=== PATIENT | male | born 1970 | race Caucasian/White ===

== ENCOUNTER 2017-03-24 13:26 | Observation (INO) | payer OTHER ==
--- NOTE | 2017-03-24 13:45 | CPEKG ---
Heart Rate: 98 RR Interval: 612 P-R Interval: 152 QRSD Interval: 96 QT Interval: 380 QTC Interval: 486 P Linwood: 63 QRS Linwood: -7 T Wave [place]: 25 EKG Severity - BORDERLINE ECG - EKG Impression: SINUS RHYTHM EKG Impression: BORDERLINE PROLONGED QT INTERVAL Electronically Signed By: Pamela Larsen 24-Mar-2017 15:10:16
[2017-03-24] MEDS ORDERED: ASPIRIN 81 MG CHEWABLE TAB PO ONE (13:54)
[2017-03-24 14:02] LABS: % IMMATURE GRANULYOCYTES 0.4 % (0.0-1.1); ABSOLUTE IMMATURE GRANULOCYTES 0.03 10^3/uL (0.00-0.10); ADD DIFF? NO; ADD MORPH? NO; ADD SCAN? NO; ATYPICAL LYMPHOCYTE FLAG 10 (0-99); FRAGMENT RBC FLAG 0 (0-99); HEMATOCRIT 40.1 % (40.0-51.0); HEMOGLOBIN 14.5 g/dL (13.7-17.5); LEFT SHIFT FLG 0 (0-99); LIPEMIA HEMOLYSIS FLAG 90 (0-99); MEAN CELL HEMOGLOBIN 34.2 pg (27.9-34.1); MEAN CELL HEMOGLOBIN CONCENTR. 36.2 g/dL (32.4-36.7); MEAN CELL VOLUME 94.6 fL (81.5-99.8); MEAN PLATELET VOLUME 8.9 fL (8.7-11.7); PLATELET CLUMPS FLAG 10 (0-99); PLATELET COUNT 141 10^3/uL (150-400); RED BLOOD CELL COUNT 4.24 10^6/uL (4.40-6.38)
[2017-03-24 14:14] LABS: ANION GAP 23 mEq/L (8-16); CALCIUM 8.7 mg/dL (8.5-10.4); CARBON DIOXIDE 16 mEq/l (22-31); CHLORIDE 99 mEq/L (97-110); CREATININE 0.8 mg/dL (0.7-1.3); GLOMERULAR FILTRATION RATE > 60; GLUCOSE 61 mg/dL (70-100); INR 0.91 (0.83-1.16); POTASSIUM 3.8 mEq/L (3.5-5.2); PROTIME(PATIENT) 12.1 SEC (12.0-15.0); SODIUM 138 mEq/L (134-144)
[2017-03-24 14:15] LABS: APTT 20.8 SEC (23.0-38.0)
[2017-03-24 14:26] LABS: CREATINE KINASE-MB FRACTION 1.31 ng/mL (0-3.19); TROPONIN I < 0.012 ng/mL (0-0.034)
[2017-03-24] MEDS ORDERED: DIAZEPAM 10 MG/2 ML SYR IVP ONE (14:27)
--- NOTE | 2017-03-24 14:31 | EDPHY ---
H & P Time Seen by Provider: 03/24/17 13:50 HPI/ROS: HPI Chest discomfort. 46-year-old male by private vehicle with his and son. This patient reports that he has been feeling more stress lately and more anxious. He reports that he developed chest discomfort described as mid substernal aching and burning since last night. He reports that he got better yesterday evening but then he woke up again with this morning at 4:00 a.m. and it has persisted since 4:00 a.m.. He reports feeling more anxious than usual. He has had these sensations in the past but not as extreme as this morning. He denies any family history of coronary artery disease. He denies any previous personal history of cardiac disease. He is a smoker. He also has a history of hypertension. ROS: Constitutional: No fever, no chills. No weakness. As above. Eyes: No discharge. No changes in vision. ENT: No sore throat. No nasal congestion or rhinorrhea. Respiratory: No cough. No shortness of breath. Cardiac: As above, no palpitations. Gastrointestinal: No abdominal pain, no vomiting, no diarrhea. Genitourinary: No hematuria. No dysuria or increased frequency with urination. Musculoskeletal: No back pain. No neck pain. No myalgias or arthralgias. Skin: No rashes. Neurological: No headache. No focal weakness or altered sensation. Past medical history: IBS, anxiety, gout, hypertension. Social history: Smoker. Admits to drinking too much alcohol. Here with and son. Physical Exam: General Appearance: Alert, mildly anxious. This patient is responding to questions appropriately and in full sentences. This patient appears well- hydrated and well-nourished. Eyes: Pupils equal and round no pallor or injection. No lid edema, erythema or injection. Respiratory: There are no retractions, lungs are clear to auscultation with good air movement bilaterally. Cardiovascular: Regular rate and rhythm. No murmur. Gastrointestinal: Abdomen is soft and nontender, no masses, bowel sounds normal. No focal tenderness at McBurney's point. No Guevara sign. Neurological: Motor sensory function is grossly intact. Cranial nerves are normal. Gait is normal. Skin: Warm and dry, no rashes. Musculoskeletal: Neck is supple and nontender. Extremities are symmetrical. All joints range without pain or impingement. Psychiatric: No agitation. No depression. Database: EKG: EKG time is 1:43 p.m.; EKG shows a narrow complex normal sinus rhythm with a ventricular rate of 98. The SC, QRS, QT intervals are within normal limits. There are no ST-T wave changes indicative of ischemic or injury pattern. No evidence of right heart strain. Interpreted by me. Imaging: Chest x-ray; the cardiac mediastinal silhouette is unremarkable. No evidence of infiltrate or pneumothorax. No acute cardiopulmonary disease process noted. Interpreted by me. Procedures: Emergency department course: IV placed. He was placed on a quality assurance monitor body. He was given 324 mg of chewed aspirin. EKG obtained from triage. 2:30 p.m., after my evaluation, she was given 5 mg of IV Valium. 2:45 p.m., patient re-evaluated. No relief from IV Valium. He will be given sublingual nitroglycerin and will be admitted. This plan was discussed with him as were the results of his emergency department workup. He consents. 2:55 p.m., discussed case with on-call hospitalist, Dr. Fabian. He accepts the patient for admission. Patient admitted in stable condition to telemetry under the care of the hospitalist service. Differential Diagnosis: The differential diagnosis on this patient includes but is not limited to acute coronary syndrome, myocardial infarction, anxiety reaction. Pulmonary embolism , myocarditis, pericarditis, aortic dissection unlikely. This represents a partial list of diagnoses considered. These considerations are based on history , physical exam, past history, reassessment and diagnostic testing. Smoking Status: Current every day smoker Constitutional: Initial Vital Signs Temperature (C) 37.3 C 03/24/17 13:30 Heart Rate 110 H 03/24/17 13:30 Respiratory Rate 18 03/24/17 13:30 Blood Pressure 156/95 H 03/24/17 13:30 O2 Sat (%) 97 03/24/17 13:30 O2 Delivery Mode Room Air Allergies/Adverse Reactions: contrast IV Allergy (Severe, Uncoded 03/24/17 13:32) Anaphylaxis Home Medications: Medication Instructions Recorded Allopurinol [Allopurinol 100 MG 100 mg PO DAILY 03/24/17 (*)] Lisinopril [Zestril 10 mg (*)] 10 mg PO 03/24/17 Medical Decision Making - Data Points Laboratory Results: Laboratory Results 03/24/17 13:46 03/24/17 13:46 03/24/17 03/24/17 03/24/17 13:46 13:46 13:46 WBC 7.59 10^3/uL 10^3/uL (3.80-9.50) RBC 4.24 10^6/uL L 10^6/uL (4.40-6.38) Hgb 14.5 g/dL g/dL (13.7-17.5) Hct 40.1 % % (40.0-51.0) MCV 94.6 fL fL (81.5-99.8) MCH 34.2 pg H pg (27.9-34.1) MCHC 36.2 g/dL g/dL (32.4-36.7) RDW 14.0 % % (11.5-15.2) Plt Count 141 10^3/uL L 10^3/uL (150-400) MPV 8.9 fL fL (8.7-11.7) Neut % (Auto) 49.7 % % (39.3-74.2) Lymph % (Auto) 41.8 % % (15.0-45.0) [place] % (Auto) 7.4 % % (4.5-13.0) Eos % (Auto) 0.3 % L % (0.6-7.6) Baso % (Auto) 0.4 % % (0.3-1.7) Nucleat RBC Rel Count 0.0 % % (0.0-0.2) Absolute Neuts (auto) 3.78 10^3/uL 10^3/uL (1.70-6.50) Absolute Lymphs (auto) 3.17 10^3/uL H 10^3/uL (1.00-3.00) Absolute Monos (auto) 0.56 10^3/uL 10^3/uL (0.30-0.80) Absolute Eos (auto) 0.02 10^3/uL L 10^3/uL (0.03-0.40) Absolute Basos (auto) 0.03 10^3/uL 10^3/uL (0.02-0.10) Absolute Nucleated RBC 0.00 10^3/uL 10^3/uL (0-0.01) Immature Gran % 0.4 % % (0.0-1.1) Immature Gran # 0.03 10^3/uL 10^3/uL (0.00-0.10) PT 12.1 SEC SEC (12.0-15.0) INR 0.91 (0.83-1.16) APTT 20.8 SEC L SEC (23.0-38.0) Sodium 138 mEq/L mEq/L (134-144) Potassium 3.8 mEq/L mEq/L (3.5-5.2) Chloride 99 mEq/L mEq/L (97-110) Carbon Dioxide 16 mEq/l L mEq/l (22-31) Anion Gap 23 mEq/L H mEq/L (8-16) BUN 10 mg/dL mg/dL (7-23) Creatinine 0.8 mg/dL mg/dL (0.7-1.3) Estimated GFR > 60 Glucose 61 mg/dL L mg/dL (70-100) Calcium 8.7 mg/dL mg/dL (8.5-10.4) Creatine Kinase 120 IU/L IU/L (0-224) CK-MB (CK-2) Fraction 1.31 ng/mL ng/mL (0-3.19) Troponin I < 0.012 ng/mL ng/mL (0-0.034) Medications Given: Discontinued Medications Aspirin (Aspirin) 324 mg PO EDNOW ONE Stop: 03/24/17 13:55 Last Admin: 03/24/17 14:05 Dose: 324 mg Diazepam (Valium Injection) 5 mg IVP EDNOW ONE Stop: 03/24/17 14:28 Last Admin: 03/24/17 14:35 Dose: 5 mg Morphine Sulfate (Morphine) 2 mg IVP EDNOW ONE Stop: 03/24/17 13:55 Last Admin: 03/24/17 14:05 Dose: 2 mg Departure - Departure Disposition: [facility] Inpatient Acute Clinical Impression: Chest pain Referrals: CANDIDA REYEZ [Primary Care Provider] - As per Instructions
[2017-03-24] MEDS ORDERED: NITROGLYCERIN 0.4 MG BTL SL PRN (14:52)
[2017-03-24] MEDS ORDERED: ACETAMINOPHEN 325 MG TAB PO PRN (15:30)
[2017-03-24] MEDS ORDERED: ONDANSETRON DISINTEGRATING 4 MG TAB PO PRN (15:30)
[2017-03-24] MEDS ORDERED: ONDANSETRON 4 MG/2 ML VIAL IVP PRN (15:30)
[2017-03-24] MEDS ORDERED: NICOTINE 21 MG/24 HR PATCH TD SCH (15:30)
[2017-03-24] MEDS ORDERED: NICOTINE POLACRILEX 2 MG GUM B PRN (15:30)
[2017-03-24] MEDS ORDERED: TEMAZEPAM 15 MG CAP PO PRN (16:30)
--- NOTE | 2017-03-24 16:35 | PDGENHP ---
History and Physical - Chief Complaint Acute chest pain - History of Present Illness PCP: Dr. David HPI: 46-year-old male presents with acute chest pain characterized as pressure like sensation located in the substernal area with onset of symptoms on the evening prior to this presentation, occurring at rest, intermittent duration, radiation into his left shoulder. The sensations persisted into today and he sought further medical attention. The symptoms have not been alleviated with Valium, morphine, sublingual nitroglycerin. He reports that he has had similar symptoms in the past and they have been related to anxiety. The patient reports that he is having significant insomnia, anxiety, escalation in his alcohol intake in an attempt to alleviate both these symptoms. He believes that he lives a very stressful life and he is not currently working with any mental health providers in order to help manage this. He has not previously had any cardiac workup. Denies any recent extended travel. History Information - Allergies/Home Medication List Allergies/Adverse Reactions: contrast IV Allergy (Severe, Uncoded 03/24/17 13:32) Anaphylaxis Home Medications: Allopurinol [Zyloprim] 300 mg PO DAILY 03/24/17 [Last Taken Unknown] Herbals/Supplements -Info Only 1 ea PO DAILY 03/24/17 [Last Taken Unknown] Lisinopril/Hctz 10/12.5 mg [Zestoretic/Prinzide 10/12.5MG (*)] 1 ea PO DAILY [Last Taken Unknown] I have personally reviewed and updated: family history, medical history, social history, surgical history - Past Medical History hypertension - Surgical History Additional surgical history: Right total hip replacement - Family History Additional family history: no family history of coronary artery disease, no family history of venous thromboembolism - Social History Smoking Status: Current every day smoker Alcohol Use: Heavy Drug Use: None Additional social history: patient reports that he is physically active, swims regularly, does not experience any chest pain with this Review of Systems ROS: 10pt was reviewed & negative except for what was stated in HPI & below Cardiac: Reports: chest pain Neurological: Reports: anxiety, other ( insomnia) Physical Exam Temp Pulse Resp BP Pulse Ox 36.8 C 85 17 139/84 H 98 03/24/17 16:26 03/24/17 16:26 03/24/17 16:26 03/24/17 16:26 03/24/17 16:26 Constitutional: no apparent distress, appears nourished, uncomfortable, other ( appears very anxious) Eyes: PERRL, anicteric sclera, EOMI Ears, Nose, Mouth, Throat: moist mucous membranes, hearing normal, ears appear normal, no oral mucosal ulcers Cardiovascular: tachycardia, No systolic murmur, No irregularly irregular, No edema Respiratory: no respiratory distress, no rales or rhonchi, clear to auscultation Gastrointestinal: normoactive bowel sounds, soft, non-tender abdomen, no palpable masses Skin: warm, normal color, no rashes or abrasions, no fluctuance, no induration, other ( no vesicular lesions over the chest), No mottled Musculoskeletal: other ( full range of motion bilateral shoulders without any pain elicited, no tenderness to palpation over the bilateral pectoralis muscles) Neurologic: AAOx3, sensation intact bilaterally, other ( fine tremor in his hands), No weakness, No asterixes Psychiatric: not encephalopathic, thought process linear, anxious ( significantly), No agitated Lab Data & Imaging Review 03/24/17 13:46 03/24/17 13:46 WBC 7.59 10^3/uL (3.80-9.50) 03/24/17 13:46 RBC 4.24 10^6/uL (4.40-6.38) L 03/24/17 13:46 Hgb 14.5 g/dL (13.7-17.5) 03/24/17 13:46 Hct 40.1 % (40.0-51.0) 03/24/17 13:46 MCV 94.6 fL (81.5-99.8) 03/24/17 13:46 MCH 34.2 pg (27.9-34.1) H 03/24/17 13:46 MCHC 36.2 g/dL (32.4-36.7) 03/24/17 13:46 RDW 14.0 % (11.5-15.2) 03/24/17 13:46 Plt Count 141 10^3/uL (150-400) L 03/24/17 13:46 MPV 8.9 fL (8.7-11.7) 03/24/17 13:46 Neut % (Auto) 49.7 % (39.3-74.2) 03/24/17 13:46 Lymph % (Auto) 41.8 % (15.0-45.0) 03/24/17 13:46 [place] % (Auto) 7.4 % (4.5-13.0) 03/24/17 13:46 Eos % (Auto) 0.3 % (0.6-7.6) L 03/24/17 13:46 Baso % (Auto) 0.4 % (0.3-1.7) 03/24/17 13:46 Nucleat RBC Rel Count 0.0 % (0.0-0.2) 03/24/17 13:46 Absolute Neuts (auto) 3.78 10^3/uL (1.70-6.50) 03/24/17 13:46 Absolute Lymphs (auto) 3.17 10^3/uL (1.00-3.00) H 03/24/17 13:46 Absolute Monos (auto) 0.56 10^3/uL (0.30-0.80) 03/24/17 13:46 Absolute Eos (auto) 0.02 10^3/uL (0.03-0.40) L 03/24/17 13:46 Absolute Basos (auto) 0.03 10^3/uL (0.02-0.10) 03/24/17 13:46 Absolute Nucleated RBC 0.00 10^3/uL (0-0.01) 03/24/17 13:46 Immature Gran % 0.4 % (0.0-1.1) 03/24/17 13:46 Immature Gran # 0.03 10^3/uL (0.00-0.10) 03/24/17 13:46 PT 12.1 SEC (12.0-15.0) 03/24/17 13:46 INR 0.91 (0.83-1.16) 03/24/17 13:46 APTT 20.8 SEC (23.0-38.0) L 03/24/17 13:46 Sodium 138 mEq/L (134-144) 03/24/17 13:46 Potassium 3.8 mEq/L (3.5-5.2) 03/24/17 13:46 Chloride 99 mEq/L (97-110) 03/24/17 13:46 Carbon Dioxide 16 mEq/l (22-31) L 03/24/17 13:46 Anion Gap 23 mEq/L (8-16) H 03/24/17 13:46 BUN 10 mg/dL (7-23) 03/24/17 13:46 Creatinine 0.8 mg/dL (0.7-1.3) 03/24/17 13:46 Estimated GFR > 60 03/24/17 13:46 Glucose 61 mg/dL (70-100) L 03/24/17 13:46 Calcium 8.7 mg/dL (8.5-10.4) 03/24/17 13:46 Creatine Kinase 120 IU/L (0-224) 03/24/17 13:46 CK-MB (CK-2) Fraction 1.31 ng/mL (0-3.19) 03/24/17 13:46 Troponin I < 0.012 ng/mL (0-0.034) 03/24/17 13:46 Visualized and Interpreted Chest x-ray results: Yes Chest X-Ray results: no infiltrate Visualized and Interpreted EKG results: Yes EKG Interpretation: Positive for: other ( T-wave inversion in lead 3, otherwise normal sinus rhythm) Assessment & Plan Assessment: 46-year-old male presents with acute chest pain in the setting of severe anxiety and alcohol abuse Plan: 1. Chest pain. Acute, new problem this provider, further workup indicated. Potential etiologies include acute coronary syndrome versus anxiety mediated versus reflux versus peptic ulcer. - monitor on telemetry overnight, cycle cardiac enzymes, send D-dimer to rule out pulmonary embolism, send lipase to rule out pancreatitis - get Lexiscan stress test tomorrow given the patient cannot run on a treadmill - the patient has received morphine and nitroglycerin without effect, do not continue to administer nitroglycerin but rather symptomatically support with Tylenol and morphine overnight, as well as treating his anxiety with Ativan - check risk factors with lipid panel and hemoglobin A1c 2. Metabolic acidosis. Acute, unclear etiology, serum bicarbonate level 16, check lactic acid and serum ethanol 3. Alcohol abuse. Chronic, patient reports he has not experienced acute alcohol withdrawal but he has significant anxiety, placed on CIWA protocol and give temazepam HS Diet. Cardiac then NPO after midnight Prophylaxis. Low risk patient, SCDs Code. Full Disposition. Anticipated discharge 03/25/2017, pending further workup as outlined above. I have discussed patient's presentation with Dr. Pamela Larsen, he and I both agree the patient requires urgent cardiac risk stratification given his significant risk factor profile.
[2017-03-24] MEDS ORDERED: LORazepam 2 MG/ML INJ IVP PRN (16:43)
[2017-03-24 17:12] LABS: ETHANOL SERUM 26 mg/dL (0-10)
[2017-03-24] MEDS ORDERED: NS 1,000 ML IV SCH (18:15)
[2017-03-24] MEDS: ENOXAPARIN 80 MG/0.8 ML SYR SC SCH (18:25)
[2017-03-25] MEDS: LORazepam 1 MG TAB PO PRN ×4 (04:09→20:50)
[2017-03-25 08:06] LABS: ANION GAP 12 mEq/L (8-16); CARBON DIOXIDE 23 mEq/l (22-31); CHLORIDE 104 mEq/L (97-110); CHOLESTEROL 127 mg/dL (140-200); CHOLESTEROL/HDL RATIO 2.27 RATIO (1.00-4.97); CREATININE 0.8 mg/dL (0.7-1.3); GLOMERULAR FILTRATION RATE > 60; GLUCOSE 82 mg/dL (70-100); HIGH DENSITY LIPOPROTEIN 56 mg/dL (40-65); LDL/HDL RATIO 0.75 RATIO (1.00-3.64); LOW DENSITY LIPOPROTEIN 42 mg/dL (70-100); MAGNESIUM 1.9 mg/dL (1.6-2.3); NON-HIGH DENSITY LIPOPROTEIN 71 mg/dL (90-129); POTASSIUM 3.6 mEq/L (3.5-5.2); SODIUM 139 mEq/L (134-144); TRIGLYCERIDE 145 mg/dL (40-150); VERY LOW DENSITY LIPOPROTEINS 29 mg/dL (8-25)
[2017-03-25 08:17] LABS: TROPONIN I < 0.012 ng/mL (0-0.034)
[2017-03-25] MEDS ORDERED: Herbals/Supplements -Info Only PO SCH (09:00)
[2017-03-25] MEDS: ENOXAPARIN 80 MG/0.8 ML SYR SC SCH (09:10)
[2017-03-25] MEDS: ALLOPURINOL 300 MG TAB PO SCH (09:11)
--- NOTE | 2017-03-25 09:34 | WOCRNPDOC ---
WOCRN Advanced Assessment Note - Skin Integrity Problem, Advanced Assess Left Lower Arm Dressing Type: Open to Air Exudate Amount: None Exudate Characteristic(s): None Brandan Wound Tissue: Erythema, Indurated Brandan Wound Swelling: Mild Wound Bed Color: Brown Wound Bed Constitution: Scab Site Measurement - Head-to-Toe Length X Width X Depth (cm): 1cmx0.1cmx scab Skin Integrity Problem Comment: Superficial, linear excoriation noted on patient LFA. He reports that this injury was caused by a large splinter, which became lodged in his skin after he reached through a cedar fence. He reports "digging" most of the splinter out, but thinks there may be some retained pieces. Presently, there are linear, intact scabs at this site, w/ mild induration noted. This author was unable to ascertain whether or not there is any retained wood fragments, as the site is scabbed. No fluctuance over area, erythema confined to immediate brandan-wound tissue, and patient reports only mild pain when site palapated. For now, recommendation is to continue to watch site and monitor for any changes indicating the wound is worsening. Discussed s/sx of infection with patient, including increased/spreading redness, increased pain and swelling, purulent drainage, or fever. Please reconsult wound RN as needed. Report given to landscape horticulture instructor Yue.
[2017-03-25 10:22] LABS: HEMOGLOBIN A1C 4.8 % (4.0-6.0)
--- NOTE | 2017-03-25 14:55 | HOSPPROG ---
Hospitalist Progress Note Assessment/Plan: 46 yo M with pmh of etoh abuse and anxiety presenting with chest pain # chest pain: with initial w/u including serial ecg, serial trops and cxr unremarkable. Did have elevated dimer and given contrast allergy v/q scan performed today which is low probability for PE. Plan for nuc stress in am. # agma: with elevated lactate initially in the setting of recent heavy etoh use , no e/o infection, improved overnight. Suspect etoh ketoacidosis, increased lactate likely related to same # etoh abuse: without e/o withdrawal thus far, will start mvi/thiamine/folate and check lfts. Hepatic steatosis noted on vq scan. # anxiety: continue prn ativan, contributing to etoh abuse # observation status, likely dc in am if stress test negative Patient new to my care. Old records reviewed and summarized as above. Subjective: no significant overnight events, patient feeling better today, currently chest pain Objective: Vital Signs Temp Pulse Resp BP Pulse Ox 36.8 C 70 17 133/89 H 91 L 03/25/17 13:14 03/25/17 13:14 03/25/17 13:14 03/25/17 13:14 03/25/17 13:14 Laboratory Results 03/25/17 07:17 03/24/17 03/25/17 03/26/17 05:59 05:59 05:59 Intake Total 780 2000 Output Total 500 Balance 280 2000 PT 12.1 SEC (12.0-15.0) 03/24/17 13:46 INR 0.91 (0.83-1.16) 03/24/17 13:46 awake alert nad anicteric op clear rrr no mrg cta b soft nt nd no cce warm dry well perfused oriented appropriate ICD10 Worksheet Patient Problems: Problems Problem Status Onset Chest pain Acute
[2017-03-25] MEDS: FOLIC ACID 1 MG TAB PO SCH (15:24)
[2017-03-25] MEDS: MULTIVITAMINS 1 EACH TAB PO SCH (15:24)
[2017-03-25] MEDS: THIAMINE HCL 100 MG TAB PO SCH (15:24)
[2017-03-25 16:20] LABS: ALBUMIN 3.1 g/dL (3.5-5.0); BILIRUBIN-CONJUGATED 0.4 mg/dL (0.0-0.5); BILIRUBIN-UNCONJUGATED 0.6 mg/dL (0.0-1.1); TOTAL PROTEIN 5.1 g/dL (6.3-8.2)
[2017-03-26] MEDS: LORazepam 1 MG TAB PO PRN ×2 (05:13→11:30)
[2017-03-26 08:09] VITALS: PULSE 67
[2017-03-26] MEDS: FOLIC ACID 1 MG TAB PO SCH (08:45)
[2017-03-26] MEDS: THIAMINE HCL 100 MG TAB PO SCH (08:46)
[2017-03-26] MEDS: MULTIVITAMINS 1 EACH TAB PO SCH (08:46)
[2017-03-26] MEDS: ALLOPURINOL 300 MG TAB PO SCH (08:46)
[2017-03-26] MEDS ORDERED: REGADENOSON 0.4 MG/5 ML SYR IVP ONE (09:24)
--- NOTE | 2017-03-26 13:34 | PDDCSUM ---
Discharge Summary Discharge Summary: Dates of service 03/24-03/26/17 Discharge dx: # chest pain # agma # alcoholic hepatitis # anxiety # etoh use/abuse consultations: none Procedures performed: stress test, v/q scan Hospital course by problem: # chest pain: with initial w/u including serial ecg, serial trops and cxr unremarkable. Did have elevated dimer and given contrast allergy v/q scan performed today which is low probability for PE. Plan for nuc stress in am. # agma: with elevated lactate initially in the setting of recent heavy etoh use , no e/o infection, improved overnight. Suspect etoh ketoacidosis, increased lactate likely related to same # alcoholic hepatitis: lfts notable for mild elevation in transaminases with ast :alt c/w alc hep, as next # etoh abuse: without e/o withdrawal other than significant anxiety. Hepatic steatosis noted on vq scan. recommend cutting down/cessation # anxiety: will dc on short course of ativan, recommending f/u with therapist Dc home f/u with pcp > 35 minutes spent in dc, more than half in face to face counseling of patient and regarding f/u care plans
[2017-03-26 13:44] VITALS: BP 142/88; RESP 17; TEMP 98.1; O2SAT 96
--- NOTE | 2017-03-26 20:23 | CPR ---
[f rep st] NONINVASIVE CARDIAC PROCEDURE REPORT PROCEDURE PERFORMED: Nuclear Lexiscan Stress Test REASON FOR TEST: Chest discomfort. Resting EKG shows a regular sinus rhythm with idioventricular conduction delay in inferior lead III. Resting blood pressure is 130/89, oxygen saturation 96%, heart rate 65. He is asymptomatic prior to testing. LEXISCAN STRESS TEST: Lexiscan was injected rapidly followed by saline flush. Cardiolite was then injected followed by saline flush. He did feel short of breath with flush and unspecified chest dis comfort. Caffeine was given with immediate reduction in symptoms. Stress blood pressure peaked at 138/92. Peak heart rate 112. RECOVERY: He did spontaneously recover with caffeine. Resting blood pressure 124/89, oxygen satura tion 97%. Resting heart rate 95. He is asymptomatic. EKG remained stable throughout testing. At this time, he currently is stable for imaging. /[id number]/MODL
== END 2017-03-26 14:27 | disposition home or self-care (01) ==
LOC: F2W 16:11
PROVIDERS: ADMIT Internal Medicine; ATTEND Internal Medicine
DX: R07.89 Other chest pain (principal); K70.10 Alcoholic hepatitis without ascites; E87.2 Acidosis; F10.10 Alcohol abuse, uncomplicated; F41.8 Other specified anxiety disorders; F17.210 Nicotine dependence, cigarettes, uncomplicated; Z96.641 Presence of right artificial hip joint
CPT/HCPCS: 71010; 78451; 78582; 93005; 93017; 96374; 96375; 99285; A9500; A9540; A9558; G0378; G0480; J1650; J2060; J2785